=== PATIENT | male | born 1955 | race Caucasian/White ===

== ENCOUNTER 2024-10-30 06:10 | Emergency (ER) | payer MEDICARE, SELFPAY ==
[2024-10-30] VITALS (9 sets, daily range): BP systolic 145–178; BP diastolic 75–93; PULSE 75–86; RESP 16–18; TEMP 36.7; O2SAT 95–98
[2024-10-30 06:34] LABS: Abs Immature Grans 0.05 10^3/uL (0.0-0.06); HCT 40.6 % (40.0-50.0); HGB 14.4 g/dL (13.5-17.5); Immature Grans % 0.4 %; MCH 30.4 pg (27.0-33.0); MCHC 35.5 % (32.0-36.0); MCV 86 fL (80-95); MPV 9.1 fL (8.0-11.0); Platelet Count 191 10^3/uL (130-400); RBC 4.74 10^6/uL (4.36-5.78); RDW 11.5 % (11.8-14.1); RDW-SD 35.6 fL; WBC 11.28 10^3/uL (4.4-10.8)
[2024-10-30 06:49] LABS: ALT 30 U/L (16-63); AST 16 U/L (15-37); Albumin 4.2 g/dL (3.4-5.0); Alkaline Phosphatase 141 U/L (46-116); Anion Gap 11.5 mmol/L (3-11); BUN 32 mg/dL (7-18); Bilirubin, Total 1.3 mg/dL (0.2-1.0); CO2 24.5 mmol/L (21.0-32.0); Calcium 9.0 mg/dL (8.5-10.1); Chloride 102 mmol/L (98-107); Estimated GFR 27.13 (mL/min/1.73m2); Glucose 200 mg/dL (74-106); Potassium 4.3 mmol/L (3.5-5.1); Sodium 138 mmol/L (136-145); Total Protein 7.6 g/dL (6.4-8.2)
[2024-10-30] MEDS: Omnipaque 350 MG/ML 100 ML BTL IJ (06:54)
[2024-10-30] MEDS: Normal Saline - Diluent 50 ML VIAL IJ (06:55)
[2024-10-30] MEDS: Ketorolac 15 MG/ML VIAL IVP (06:55)
--- NOTE | 2024-10-30 06:55 | DI.CT_ITS ---
Exam(s) CT ABDOMEN PELVIS W EXAM: CT ABDOMEN PELVIS W CLINICAL HISTORY: left flank pain, hx kidney stones. TECHNIQUE: Imaging Protocol: Axial computed tomography images with coronal and sagittal reformatted images were created and reviewed CONTRAST MATERIAL: Intravenous: Omnipaque-350 100cc Oral: None COMPARISON: No exams were available for comparison FINDINGS: VISUALIZED LUNG BASES: No nodules nor pleural effusions evident. Small pericardial effusion noted. Maximum thickness 5 mm. ABDOMEN: There is no ascites. LIVER: There are no focal hepatic lesions evident. No dilated intrahepatic ducts. GALLBLADDER/BILIARY: There appear to be non heavily calcified gallstones in the gallbladder body-neck region. There is no gallbladder wall edema nor pericholecystic fluid. CBD is not dilated. PANCREAS: There is a cystic lesion in the posterior aspect of the pancreatic body adjacent to the splenic vein. This measures 12 x 11 mm. The pancreatic duct is not dilated. There are no pancreatic calcifications. SPLEEN: Spleen is not enlarged. No obvious intrasplenic lesions. Splenic and portal veins are patent. ADRENALS: There are no significant adrenal masses. KIDNEYS/bladder:There is small benign cysts noted in both kidneys which do not require further imaging workup. There are no solid renal masses. There is a nonobstructive calculus in the midpole level of the left kidney measuring 4 mm. There is also a calculus in the upper left ureter measuring 6 mm. There is mild hydronephrosis above this level. No hydronephrosis on the opposite-right side. There are no calculi in the nondistended urinary bladder. The bladder wall exhibits some relatively uniform thickening which is probably related to the enlarged prostate gland. Bladder is not distended. There are no radiopaque calculi seen in the bladder lumen. ABDOMINAL AORTA: Abdominal aorta is not enlarged. LYMPH NODES:There is no retroperitoneal nor paraaortic adenopathy. ABDOMINAL WALL: No evidence of significant anterior abdominal wall nor inguinal hernia. GI: There is no evidence of bowel obstruction, free air, nor abscess. PELVIS: GI: No evidence of appendicitis.Sigmoid diverticuli but no evidence of acute diverticulitis. LYMPH NODES: There is no intrapelvic nor inguinal adenopathy. REPRODUCTIVE: Mild prostate enlargement. Some prostate lobulation noted which indents the posterior wall the bladder. OSSEOUS: No fractures nor significant osseous lesions. IMPRESSION: 1. The main acute finding here is an obstructing 6 mm calculus in the upper 3rd of the left ureter with mild hydronephrosis and hydroureter above this level. There is a single remaining additional calculus in the left kidney measuring 4 mm. There are no calculi nor hydronephrosis in the opposite-right kidney. 2. There are bilateral benign renal cysts which do not require further workup. There are no solid renal masses. 3. Cholelithiasis noted. No acute cholecystitis nor dilatation of the biliary tree. 4. There is a 1.2 x 1.1 cm cystic structure in the posterior aspect of the body of the pancreas. Recommend follow-up contrast infused pancreatic protocol MRI. 5. Moderately enlarged and lobulated prostate gland. Follow-up recommended. Mildly thickened urinary bladder wall Preliminary virtual Radiology report was reviewed. Final report called by myself to ER physician 10/30/2024 at 8:50 a.m. RADIATION DOSE DELIVERED: 666.3mGy.cm Total DLP DATA REPOSITORY: All CT scans at this facility are submitted to the National Radiology Data Registry (NRDR) Dose Index Registry (DIR) with the [employer] (ACR). RADIATION OPTIMIZATION: All CT scans at this facility use at least one of these dose optimization techniques: automated exposure control; mA and/or kV adjustment per patient size (includes targeted exams where dose is matched to clinical indication); or iterative reconstruction.
[2024-10-30] MEDS: ACETAMINOPHEN 1,000 MG/100 ML BAG 400 MG IVPB (06:56)
--- NOTE | 2024-10-30 06:58 | ED.GENADUL_ITS ---
Discharge Plan Discharge Details Chief Complaint: FlankPain ED Provider: Nathalia Stiles General Mode of arrival: ambulatory . Date/Time Provider Initiated Documentation: 10/30/24 06:15 . Limitations to Documentation: no limitations . Information obtained by: patient . HPI Narrative: 69yo M with hx HTN, prior kidney stones, presenting with left flank pain onset 2-3 days ago. Worsening since onset, sharp, radiating down left side. Feels like prior stone. Was not able to pass his prior stone, required surgery. Nausea when the pain is bad, no vomiting. No fevers, chills, rash, hematuria, abdominal pain, testicular pain, or other concerns. Related Data Home Medications ?Medication ?Instructions ?Recorded ?Confirmed amlodipine 1 tab PO DAILY 10/30/2410/21 atorvastatin 1 tab PO DAILY 10/30/2410/21 escitalopram oxalate 20 mg tablet 20 mg PO DAILY 10/3010/30/24 (Lexapro) insulin glargine 40 unit subcut DAILY 5 10/30/24 lisinopril 1 tab PO DAILY 10/30/2410/21 Allergies Allergy/AdvReac Type Severity Reaction Status Date / Time cephalexin (From Keflex) Allergy Intermediate Unknown Verified 10/30/24 06:19 General Stated Complaint: FlankPain KAROLYN: 3 Review of Systems Narrative: see HPI Exam Narrative Exam Narrative: General: Alert, well appearing Head: Normocephalic, atraumatic Neck: Trachea midline, ?Neck supple. ENT: ?MMM.? No oropharygeal lesions or exudate. Cardiac: ?RRR, no murmurs appreciated Resp: No respiratory distress. CTAB. Abd: ?Soft, non-distended, nontender : ?No suprapubic tenderness. No CVA tenderness. Extremities: ?No deformities.? No peripheral edema. Neurologic: GCS 15. ? Moves all extremities freely against gravity Course Vital Signs Vital signs: Vital Signs Temperature 36.7 C 10/30/24 06:17 Pulse 86 10/30/24 06:17 Respiratory Rate 18 10/30/24 06:17 Blood Pressure 168/75 H 10/30/24 06:17 Pulse Oximetry 96 10/30/24 06:17 Temperature 36.7 C 10/30/24 06:17 Pulse 86 10/30/24 06:17 Respiratory Rate 18 10/30/24 06:17 Blood Pressure 168/75 H 10/30/24 06:17 Pulse Oximetry 96 10/30/24 06:17 Oxygen Delivery Method Room Air 10/30/24 06:17 Oxygen Flow Rate 0 10/30/24 06:17 Pain Level 9 10/30/24 06:55 Lab/Test Results Lab/Test Results: Laboratory Tests Range/Units 10/30/24 06:20 WBC (4.4-10.8) 10^3/uL 11.28 H RBC (4.36-5.78) 10^6/uL 4.74 Hgb (13.5-17.5) g/dL 14.4 Hct (40.0-50.0) % 40.6 MCV (80-95) fL 86 MCH (27.0-33.0) pg 30.4 MCHC (32.0-36.0) % 35.5 RDW (11.8-14.1) % 11.5 L Plt Count (130-400) 10^3/uL 191 MPV (8.0-11.0) fL 9.1 Immature Gran % % 0.4 Neutrophils % % 78.7 Lymphocytes % % 9.6 Monocytes % % 10.5 Eosinophils % % 0.6 Basophils % % 0.2 Nucleated RBC % (0.0-0.3) % 0.0 Absolute Neutrophils (1.2-6.7) 10^3/uL 8.88 H Absolute Lymphocytes (1.2-3.4) 10^3/uL 1.08 L Absolute Monocytes (0.1-0.8) 10^3/uL 1.18 H Absolute Eosinophils (0.0-0.7) 10^3/uL 0.07 Absolute Basophils (0.0-0.2) 10^3/uL 0.02 Sodium (136-145) mmol/L 138 Potassium (3.5-5.1) mmol/L 4.3 Chloride (98-107) mmol/L 102 Carbon Dioxide (21.0-32.0) mmol/L 24.5 Anion Gap (3-11) mmol/L 11.5 H BUN (7-18) mg/dL 32 H Creatinine (0.70-1.30) mg/dL 2.5 H Est GFR (CKD-EPI 2021) (mL/min/1.73m2) 27.13 Glucose (74-106) mg/dL 200 H Calcium (8.5-10.1) mg/dL 9.0 Total Bilirubin (0.2-1.0) mg/dL 1.3 H AST (15-37) U/L 16 ALT (16-63) U/L 30 Alkaline Phosphatase (46-116) U/L 141 H Total Protein (6.4-8.2) g/dL 7.6 Albumin (3.4-5.0) g/dL 4.2 Medical Decision Making 69yo M with hx HTN, prior kidney stones, presenting with left flank pain onset 2-3 days ago, feels like prior stone. Hypertensive on arrival, vital signs otherwise reassuring. Benign physical exam. Will give tylenol & toradol for pain while awaiting results of workup. Labs reviewed as below, CBC reassuring with mild leukocytosis (non-specific), CMP with elevated Cr at 2.5 and mildly elevated bili at 1.3. Pending CT and UA. Signed out to oncoming physician, plan to followup CT and UA and reassess for pain control. Lab Data Lab results reviewed: Yes I reviewed the patient's lab results. Labs: Laboratory Tests Range/Units 10/30/24 06:20 WBC (4.4-10.8) 10^3/uL 11.28 H RBC (4.36-5.78) 10^6/uL 4.74 Hgb (13.5-17.5) g/dL 14.4 Hct (40.0-50.0) % 40.6 MCV (80-95) fL 86 MCH (27.0-33.0) pg 30.4 MCHC (32.0-36.0) % 35.5 RDW (11.8-14.1) % 11.5 L Plt Count (130-400) 10^3/uL 191 MPV (8.0-11.0) fL 9.1 Immature Gran % % 0.4 Neutrophils % % 78.7 Lymphocytes % % 9.6 Monocytes % % 10.5 Eosinophils % % 0.6 Basophils % % 0.2 Nucleated RBC % (0.0-0.3) % 0.0 Absolute Neutrophils (1.2-6.7) 10^3/uL 8.88 H Absolute Lymphocytes (1.2-3.4) 10^3/uL 1.08 L Absolute Monocytes (0.1-0.8) 10^3/uL 1.18 H Absolute Eosinophils (0.0-0.7) 10^3/uL 0.07 Absolute Basophils (0.0-0.2) 10^3/uL 0.02 Sodium (136-145) mmol/L 138 Potassium (3.5-5.1) mmol/L 4.3 Chloride (98-107) mmol/L 102 Carbon Dioxide (21.0-32.0) mmol/L 24.5 Anion Gap (3-11) mmol/L 11.5 H BUN (7-18) mg/dL 32 H Creatinine (0.70-1.30) mg/dL 2.5 H Est GFR (CKD-EPI 2020) (mL/min/1.73m2) 27.13 Glucose (74-106) mg/dL 200 H Calcium (8.5-10.1) mg/dL 9.0 Total Bilirubin (0.2-1.0) mg/dL 1.3 H AST (15-37) U/L 16 ALT (16-63) U/L 30 Alkaline Phosphatase (46-116) U/L 141 H Total Protein (6.4-8.2) g/dL 7.6 Albumin (3.4-5.0) g/dL 4.2 [facility] Social History Smoking risk assessment performed?: No Alcohol Intake: current Alcohol Intake frequency: a few times a month Alcohol type: beer Substance use type: does not use
--- NOTE | 2024-10-30 07:09 | DI.VRAD_ITS ---
PROCEDURE INFORMATION: Exam: CT Abdomen And Pelvis With Contrast Exam date and time: 10/30/2024 6:33 AM Age: 69 years old Clinical indication: Abdominal pain; Flank; Left; HX kidney stones TECHNIQUE: Imaging protocol: Computed tomography of the abdomen and pelvis with contrast. Radiation optimization: All CT scans at this facility use at least one of these dose optimization techniques: automated exposure control; mA and/or kV adjustment per patient size (includes targeted exams where dose is matched to clinical indication); or iterative reconstruction. Contrast material: OMNI 350; Contrast volume: 100 ml; Contrast route: INTRAVENOUS (IV); COMPARISON: No relevant prior studies available. FINDINGS: Limitations: Mild motion artifact. Lungs: Dependent changes are present in the lungs. Liver: Hepatomegaly. Low attenuation lesions in the liver too small to accurately characterize on CT. Gallbladder and biliary ducts: Cholelithiasis. Pancreas: No CT evidence for acute pancreatitis. Spleen: Mild splenomegaly. Adrenal glands: No mass. Kidneys and ureters: Bilateral renal cysts. No right hydronephrosis. Left renal calculus. Left hydroureteronephrosis. 5 mm calculus in the mid left ureter. Stomach and bowel: No intestinal obstruction is evident. Retained fecal material is present in the colon. Colonic diverticula. Appendix: No evidence of appendicitis. Intraperitoneal space: No free air. Vasculature: Atherosclerotic changes in the aorta and its branches. Lymph nodes: No acute findings. Urinary bladder: The urinary bladder appears mildly thickened but is incompletely distended. Reproductive: Enlarged prostate indenting the posterior bladder. Bones/joints: No pertinent acute abnormality seen. Soft tissues: No pertinent acute abnormality seen. IMPRESSION: 1. Obstructing left ureteral calculus. 2. Additional findings as above. Dictated and Authenticated by: Felicia Weller MD. Orderin Linsey Sloan MD
--- NOTE | 2024-10-30 07:29 | W.EDPROG ---
Date of service: 10/30/24 Time of Service: 07:29 Medical Decision Making I received signout on this 69-year-old male with left flank pain, hx kidney stones. CMP with cr 2.5. Patient had a CT scan performed showing a left upper third ureteral calculus with associated hydronephrosis. Patient has also has a pancreatic cyst for which she will require outpatient MRI. I have asked the diagnostic imaging team to have a disc cut with his CT scan. [place] 1:54 PM Late charting due to patient care. I reassessed the patient. He had a 6 mm proximal ureteral lithiasis. He was also found to have a small pancreatic cyst. I spoke with urology concerning his ureteral lithiasis. Dr. Caraballo noted his urine pH and advised sodium bicarbonate to treat uric acid stone which I ordered in addition to tamsulosin. Patient does have elevated creatinine but I advised some ibuprofen and I also provided oral opiates to use as needed for pain. Concerning his pancreatic cyst we discussed that he should bring his imaging results with primary care provider and that he would benefit from an MRI protocol to evaluate the pancreas. I pass along the phone number to the urology clinic as Dr. Caraballo requested that the patient call tomorrow for follow-up. Patient I discussed with his that if he had worsening pain nausea or vomiting could not eat or drink or if he had any other concerns that he should return immediately to the emergency department. Patient understood return indications of discharge with empiric trial of expectant outpatient management. Discharge Plan Disposition Patient Disposition: Home Discharge Details Clinical Impression: Hydronephrosis, left, Ureterolithiasis, Pancreatic cyst Primary Care Provider: Sirisha,Local ED Provider: Dave Hinson Home Meds and New Rx's Prescriptions: New tamsulosin 0.4 mg capsule 0.4 mg PO DAILY Qty: 20 0RF sodium bicarbonate 650 mg tablet 650 mg PO TID Qty: 90 0RF Continued amlodipine 1 tab PO DAILY insulin glargine [Basaglar KwikPen U-100 Insulin] 40 unit subcut DAILY lisinopril 1 tab PO DAILY atorvastatin 1 tab PO DAILY escitalopram oxalate [Lexapro] 20 mg tablet 20 mg PO DAILY Discharge Instructions Additional Instructions: You were seen in the emergency department for your flank pain. You are found to have a kidney stone. Your urinalysis shows that the kidney stone could be composed of uric acid for which sodium bicarbonate should actually decrease the size of your stone. Please take this medication as directed. Please also start tamsulosin which should help your stone improve. Please call the urology clinic to check in with them at [facility] tomorrow: [phone] If you develop worsening pain cannot eat or drink as result of nausea or vomiting or cannot urinate at least once every 8 hours while awake please return to the emergency department. You are found to have a cyst in your pancreas as we discussed. Please relay this incidental finding to your primary care provider as you will benefit from a contrast infused pancreatic protocol MRI. You were given a CAT scan on his CT. For your pain please take medications as follows: 1. Take acetaminophen (Tylenol), 1,000 mg (two 500 mg tabs) every 6 hours [2. Take ibuprofen (Advil), 400 mg every 6 hours.] Please also take these opiate medications as needed for additional pain. Please do not drive or drink alcohol after taking opiate medications. Discharge Data Discharge Date/Time-TO BE ENTERED AT DEPARTURE: 10/30/24 10:13
[2024-10-30 08:58] LABS: Glucose 100 mg/dL (Negative)
[2024-10-30 09:05] LABS: C & S Indicated? No; RBC Negative HPF (0-2); WBC Negative HPF (0-5)
[2024-10-30] MEDS: Sodium Bicarbonate 650 MG TAB PO (09:55)
[2024-10-30] MEDS: Tamsulosin 0.4 MG CAPCR PO (09:55)
== END 2024-10-30 10:13 | disposition home or self-care (01) ==
PROVIDERS: Student in an Organized Health Care Education/Training Program; Emergency Provider Emergency Medicine
DX: N13.2 Hydronephrosis with renal and ureteral calculous obstruction (principal); K86.2 Cyst of pancreas; K80.20 Calculus of gallbladder without cholecystitis without obstruction; N40.0 Benign prostatic hyperplasia without lower urinary tract symptoms; I10 Essential (primary) hypertension; E11.9 Type 2 diabetes mellitus without complications; Z79.4 Long term (current) use of insulin
CPT/HCPCS: 00123; 36415; 80053; 96365; 96375; 99285; 74177; 81003; 81015; 85025; J0131; J1885; J3490